=== PATIENT | male | born 1950 | race Caucasian/White ===

== ENCOUNTER 2019-06-26 16:23 | Inpatient (IN) | payer OTHER, SELFPAY ==
[~2019-06-26] VITALS: Ht 149.9 cm; Wt 81.2 kg
[2019-06-26 16:34] VITALS: BP 136/74
[2019-06-26 17:06] LABS: BASOPHILS % (AUTO) 0.5 % (0.0-2.0); EOSINOPHILS % (AUTO) 0.1 % (0.0-4.0); HEMATOCRIT 43.4 % (36-52); HEMOGLOBIN 15.2 g/dL (12.0-18.0); LYMPHOCYTES # (AUTO) 0.8 K/uL (2.0-11.5); LYMPHOCYTES % (AUTO) 13.1 % (20.5-51.1); MEAN CORPUSCULAR HEMOGLOBIN 31 pg (27-31); MEAN CORPUSCULAR HGB CONC 35 g/dL (33-37); MEAN CORPUSCULAR VOLUME 89.4 fL (80-94); MONOCYTES # (AUTO) 0.4 K/uL (0.8-1.0); MONOCYTES % (AUTO) 7.5 % (1.7-9.3); NEUTROPHILS # (AUTO) 4.7 K/uL (1.8-7.7); NEUTROPHILS % (AUTO) 78.8 % (42.2-75.2); PLATELET COUNT (AUTO) 127 K/uL (140-450); RED BLOOD CELL COUNT(AUTO) 4.85 MIL/uL (4.20-6.10); WHITE BLOOD COUNT (AUTO) 5.9 K/uL (4.8-10.8)
[2019-06-26] MEDS ORDERED: ACETAMINOPHEN EXTRA STRENGTH 500 MG TAB PO ONE (17:15)
[2019-06-26] MEDS ORDERED: NACL 0.9% 1,000 ML IV ONE (17:15)
[2019-06-26] MEDS ORDERED: INSULIN REGULAR, HUMAN 100 UNIT/ML VIAL SUBQ ONE (17:15)
[2019-06-26 17:18] LABS: APPEARANCE,URINE CLEAR (CLEAR); BILIRUBIN,URINE 1+ (NEGATIVE); BLOOD, URINE TRACE-I (NEGATIVE); COLOR,URINE YELLOW (YELLOW); LEUKOCYTE ESTERASE ,URINE NEGATIVE (NEGATIVE); NITRITE, URINE NEGATIVE (NEGATIVE); UGLUCOSE 3+ (NEGATIVE)
[2019-06-26 17:19] LABS: ANION GAP 14.6 (8-16); CARBON DIOXIDE 27.3 mmol/L (21-32); POTASSIUM 3.9 mmol/L (3.5-5.1)
[2019-06-26 17:22] LABS: PROTHROMBIN TIME 9.8 secs (10.8-13.4)
[2019-06-26 17:26] LABS: TOTAL BILIRUBIN 0.7 mg/dL (0.0-1.0)
[2019-06-26] MEDS ORDERED: PIPERACILLIN/TAZOBACTAM 3.375 GM in DEXTROSE 5% 50 ML IV ONE (17:50)
[2019-06-26] MEDS ORDERED: NACL 0.9% 1,000 ML IV SCH (18:08)
[2019-06-26] MEDS ORDERED: MORPHINE SULFATE 2 MG/ML SYR IVP PRN (18:10)
[2019-06-26] MEDS ORDERED: HYDROcodone/APAP 5/325 MG 1 TAB TAB PO PRN (18:10)
[2019-06-26] MEDS ORDERED: DOCUSATE SODIUM 100 MG GELCAP PO PRN (18:10)
[2019-06-26] MEDS ORDERED: ALBUTEROL HFA MDI 90 MCG/ACTUATION 8 GM INH PRN (18:10)
[2019-06-26] MEDS ORDERED: DEXTROSE 50% 50 ML SYR IVP PRN (18:20)
[2019-06-26 18:26] LABS: LACTATE DEHYDROGENASE 348 U/L (85-227)
[2019-06-26] MEDS ORDERED: AZITHROMYCIN 500 MG in DEXTROSE 5% 250 ML IV SCH (18:30)
[2019-06-26] MEDS ORDERED: METF500T2 PO (18:43)
[2019-06-26] MEDS ORDERED: PIPERACILLIN/TAZOBACTAM 3.375 GM VIAL IV ONE (18:48)
[2019-06-26 18:56] LABS: BARBITURATE, URINE NEGATIVE ng/ml (NEG <=200); BENZODIAZEPINE, URINE NEGATIVE ng/mL (NEG <=200); CANNABINOID, URINE NEGATIVE ng/mL (NEG <=50); COCAINE, URINE NEGATIVE ng/mL (NEG <=300); OPIATE, URINE NEGATIVE ng/mL (NEG <=2000); PHENCYCLIDINE SCREEN,URINE NEGATIVE ng/mL (NEG <=25)
[2019-06-26 19:03] LABS: WBC,URINE 0-5 /HPF (0-5)
[2019-06-26 19:14] LABS: PHOSPHORUS 2.1 mg/dL (2.5-4.9); THYROID STIMULATING HORMONE 1.07 uIU/mL (0.34-3.74)
[2019-06-26 19:16] VITALS: BP 102/59
[2019-06-26] MEDS: HYDROXYCHLOROQUINE 200 MG TAB PO SCH (21:00)
[2019-06-26] MEDS ORDERED: SODIUM PHOS / POTASSIUM PHOS 1 PKT PDR PO ONE (21:50)
[2019-06-26] MEDS ORDERED: AZITHROMYCIN 500 MG INJ VIAL IV ONE (22:09)
[2019-06-26] MEDS: BLOOD GLUCOSE MONITORING 1 DEV DEV FS SCH (22:20)
[2019-06-26] MEDS: INSULIN LISPRO SLIDING SCALE 100 UNITS/ML VIAL SUBQ PRN (23:28)
[2019-06-27] VITALS (10 sets, daily range): BP systolic 100–135; BP diastolic 46–75
[2019-06-27] MEDS: ACETAMINOPHEN 325 MG TAB PO PRN (03:33)
[2019-06-27] MEDS: MAG SULF 2000 MG/WATER PREMIX 50 ML IV SCH ×2 (04:51→06:37)
[2019-06-27] MEDS: BLOOD GLUCOSE MONITORING 1 DEV DEV FS SCH ×4 (06:33→20:55)
[2019-06-27] MEDS: INSULIN LISPRO SLIDING SCALE 100 UNITS/ML VIAL SUBQ PRN ×4 (06:36→20:56)
[2019-06-27 07:40] LABS: ANION GAP 10.3 (8-16); CARBON DIOXIDE 30.6 mmol/L (21-32); CREATININE 0.9 mg/dL (0.6-1.3); POTASSIUM 3.9 mmol/L (3.5-5.1)
[2019-06-27 08:04] LABS: BASOPHILS % (AUTO) 0.1 % (0.0-2.0); HEMATOCRIT 42.6 % (36-52); HEMOGLOBIN 14.8 g/dL (12.0-18.0); LYMPHOCYTES # (AUTO) 1.3 K/uL (2.0-11.5); MEAN CORPUSCULAR HEMOGLOBIN 31 pg (27-31); MEAN CORPUSCULAR HGB CONC 35 g/dL (33-37); MEAN CORPUSCULAR VOLUME 89.7 fL (80-94); MONOCYTES # (AUTO) 0.3 K/uL (0.8-1.0); MONOCYTES % (AUTO) 5.2 % (1.7-9.3); NEUTROPHILS # (AUTO) 4.5 K/uL (1.8-7.7); NEUTROPHILS % (AUTO) 72.7 % (42.2-75.2); PLATELET COUNT (AUTO) 132 K/uL (140-450); RED BLOOD CELL COUNT(AUTO) 4.75 MIL/uL (4.20-6.10); RED CELL DISTRIBUTION WIDTH 12.9 % (11.6-13.7); WHITE BLOOD COUNT (AUTO) 6.1 K/uL (4.8-10.8)
[2019-06-27] MEDS: ZINC SULF 220 MG CAP PO SCH (08:22)
[2019-06-27] MEDS: HYDROXYCHLOROQUINE 200 MG TAB PO SCH ×2 (08:22→20:04)
[2019-06-27] MEDS: ASCORBIC ACID 500 MG TAB PO SCH (08:22)
[2019-06-27] MEDS: metFORMIN 500 MG TAB PO SCH ×2 (08:23→17:12)
[2019-06-27] MEDS ORDERED: ENOXAPARIN 40 MG/0.4 ML SYR SUBQ SCH (09:00)
[2019-06-27 09:36] LABS: CHOL/HDL RATIO 4.1 (1-4.5)
[2019-06-27] MEDS ORDERED: LOVENOX 1MG/KG Q12H SUBQ SCH (10:50)
[2019-06-27] MEDS: ENOXAPARIN 60 MG/0.6 ML SYR SUBQ SCH ×2 (12:06→20:54)
[2019-06-27] MEDS: AZITHROMYCIN 250 MG TAB PO SCH (18:18)
[2019-06-27] MEDS ORDERED: FUROSEMIDE 20 MG/2 ML VIAL IVP SCH (18:41)
[2019-06-27] MEDS ORDERED: HYDROXYCHLOROQUINE 200 MG TAB ONE (20:00)
[2019-06-28] VITALS (57 sets, daily range): BP systolic 85–167; BP diastolic 52–124
[2019-06-28 06:02] LABS: ALBUMIN 2.4 g/dL (3.4-5.0); ANION GAP 13.3 (8-16); CARBON DIOXIDE 28.8 mmol/L (21-32); CREATININE 0.8 mg/dL (0.6-1.3); MAGNESIUM 1.3 mg/dL (1.8-2.4); PHOSPHORUS 2.3 mg/dL (2.5-4.9); POTASSIUM 3.1 mmol/L (3.5-5.1); TOTAL BILIRUBIN 0.8 mg/dL (0.0-1.0)
[2019-06-28 06:36] LABS: BASOPHILS % (AUTO) 0.1 % (0.0-2.0); HEMATOCRIT 42.8 % (36-52); HEMOGLOBIN 14.9 g/dL (12.0-18.0); LYMPHOCYTES # (AUTO) 1.2 K/uL (2.0-11.5); LYMPHOCYTES % (AUTO) 16.2 % (20.5-51.1); MEAN CORPUSCULAR HEMOGLOBIN 31 pg (27-31); MEAN CORPUSCULAR HGB CONC 35 g/dL (33-37); MEAN CORPUSCULAR VOLUME 88.9 fL (80-94); MONOCYTES # (AUTO) 0.5 K/uL (0.8-1.0); NEUTROPHILS # (AUTO) 5.5 K/uL (1.8-7.7); NEUTROPHILS % (AUTO) 76.7 % (42.2-75.2); PLATELET COUNT (AUTO) 155 K/uL (140-450); RED BLOOD CELL COUNT(AUTO) 4.81 MIL/uL (4.20-6.10); RED CELL DISTRIBUTION WIDTH 13.2 % (11.6-13.7); WHITE BLOOD COUNT (AUTO) 7.2 K/uL (4.8-10.8)
[2019-06-28] MEDS: metFORMIN 500 MG TAB PO SCH ×2 (09:00→17:00)
[2019-06-28] MEDS: HYDROXYCHLOROQUINE 200 MG TAB PO SCH ×2 (09:03→21:00)
[2019-06-28] MEDS: ZINC SULF 220 MG CAP PO SCH (09:04)
[2019-06-28] MEDS: ASCORBIC ACID 500 MG TAB PO SCH (09:04)
[2019-06-28] MEDS: ENOXAPARIN 60 MG/0.6 ML SYR SUBQ SCH ×2 (09:09→21:00)
[2019-06-28] MEDS ORDERED: MIDAZOLAM MDV 100 MG in NACL 0.9% 80 ML IV PRN ×2 (10:40→10:45)
[2019-06-28] MEDS: ONDANSETRON 4 MG/2 ML VIAL IM/IVP PRN ×2 (11:00→21:09)
[2019-06-28] MEDS ORDERED: KCL 20 MEQ/WATER INJ PREMIX 200 ML IV SCH (11:00)
[2019-06-28] MEDS: BLOOD GLUCOSE MONITORING 1 DEV DEV FS SCH ×3 (12:30→21:00)
[2019-06-28] MEDS: PANTOPRAZOLE 40 MG INJ VIAL IVP SCH (12:40)
[2019-06-28] MEDS: INSULIN LISPRO SLIDING SCALE 100 UNITS/ML VIAL SUBQ PRN ×3 (13:40→21:00)
[2019-06-28] MEDS: MAG SULF 2000 MG/WATER PREMIX 100 ML IV SCH ×2 (17:00→21:18)
[2019-06-28] MEDS: POTASSIUM CHLORIDE IV SCH ×2 (17:08→21:21)
[2019-06-28] MEDS: NACL 0.9% IV SCH ×2 (17:08→21:21)
[2019-06-28] MEDS: POTASSIUM PHOSPHATE IV SCH ×2 (17:08→21:21)
[2019-06-28] MEDS: AZITHROMYCIN 250 MG TAB PO SCH (18:00)
[2019-06-28] MEDS: PROPOFOL 1000 MG/100 ML PREMIX 100 ML IV PRN (21:45)
[2019-06-28] MEDS ORDERED: PROPOFOL 1000 MG/100 ML PREMIX 100 ML IV ONE (21:45)
[2019-06-28] MEDS ORDERED: HYDROmorphone PFS 2 MG/ML SYR ONE (23:20)
[2019-06-28] MEDS: HYDROmorphone PFS 2 MG/ML SYR IVP PRN (23:30)
[2019-06-29] VITALS (101 sets, daily range): BP systolic 82–163; BP diastolic 53–129
[2019-06-29] MEDS: PROPOFOL 1000 MG/100 ML PREMIX 100 ML IV PRN ×2 (01:29→07:39)
[2019-06-29] MEDS ORDERED: NOREPINEPHRINE 16 MG in DEXTROSE 5% 250 ML IV PRN (07:00)
[2019-06-29 07:14] LABS: ALBUMIN 2.2 g/dL (3.4-5.0); ANION GAP 11.3 (8-16); CARBON DIOXIDE 31.4 mmol/L (21-32); MAGNESIUM 1.6 mg/dL (1.8-2.4); PHOSPHORUS 2.1 mg/dL (2.5-4.9); POTASSIUM 3.7 mmol/L (3.5-5.1)
[2019-06-29] MEDS: BLOOD GLUCOSE MONITORING 1 DEV DEV FS SCH ×4 (07:30→21:00)
[2019-06-29 08:35] LABS: BASOPHILS % (AUTO) 0.2 % (0.0-2.0); HEMATOCRIT 39.4 % (36-52); HEMOGLOBIN 13.9 g/dL (12.0-18.0); LYMPHOCYTES # (AUTO) 1.1 K/uL (2.0-11.5); LYMPHOCYTES % (AUTO) 11.3 % (20.5-51.1); MEAN CORPUSCULAR HEMOGLOBIN 31 pg (27-31); MEAN CORPUSCULAR HGB CONC 35 g/dL (33-37); MEAN CORPUSCULAR VOLUME 89.2 fL (80-94); MONOCYTES # (AUTO) 0.6 K/uL (0.8-1.0); MONOCYTES % (AUTO) 5.9 % (1.7-9.3); NEUTROPHILS # (AUTO) 8.3 K/uL (1.8-7.7); NEUTROPHILS % (AUTO) 82.6 % (42.2-75.2); PLATELET COUNT (AUTO) 167 K/uL (140-450); RED BLOOD CELL COUNT(AUTO) 4.42 MIL/uL (4.20-6.10); RED CELL DISTRIBUTION WIDTH 13.2 % (11.6-13.7)
[2019-06-29] MEDS: HYDROXYCHLOROQUINE 200 MG TAB PO SCH ×2 (09:00→20:26)
[2019-06-29] MEDS: ZINC SULF 220 MG CAP PO SCH (09:00)
[2019-06-29] MEDS: PANTOPRAZOLE 40 MG INJ VIAL IVP SCH (09:00)
[2019-06-29] MEDS: metFORMIN 500 MG TAB PO SCH ×2 (09:00→17:34)
[2019-06-29] MEDS: ASCORBIC ACID 500 MG TAB PO SCH (09:00)
[2019-06-29] MEDS: ACETAMINOPHEN 325 MG TAB PO PRN (09:01)
[2019-06-29] MEDS ORDERED: SODIUM PHOS / POTASSIUM PHOS 1 PKT PDR PO SCH (09:15)
[2019-06-29] MEDS ORDERED: MAG SULF 2000 MG/WATER PREMIX 50 ML IV SCH ×2 (09:30→15:00)
[2019-06-29] MEDS: NACL 0.9% 1,000 ML IV SCH (10:00)
[2019-06-29] MEDS: ENOXAPARIN 40 MG/0.4 ML SYR SUBQ SCH (11:00)
[2019-06-29] MEDS: MORPHINE SULFATE 100 MG in NACL 0.9% 90 ML IV PRN (13:45)
[2019-06-29] MEDS: MIDAZOLAM MDV 100 MG in NACL 0.9% 80 ML IV PRN (13:45)
[2019-06-29] MEDS: INSULIN LISPRO SLIDING SCALE 100 UNITS/ML VIAL SUBQ PRN ×2 (13:53→21:00)
[2019-06-29] MEDS: HYDROmorphone PFS 2 MG/ML SYR IVP PRN ×2 (14:25→20:26)
[2019-06-29] MEDS ORDERED: CRUSHER, PILL MC ONE (17:10)
[2019-06-29] MEDS: AZITHROMYCIN 250 MG TAB PO SCH (17:34)
[2019-06-30] VITALS (103 sets, daily range): BP systolic 53–129; BP diastolic 48–64
[2019-06-30] MEDS: MIDAZOLAM MDV 100 MG in NACL 0.9% 80 ML IV PRN ×2 (03:53→23:16)
[2019-06-30] MEDS: MORPHINE SULFATE 100 MG in NACL 0.9% 90 ML IV PRN ×2 (05:29→23:11)
[2019-06-30] MEDS: ACETAMINOPHEN 325 MG TAB PO PRN ×3 (07:12→18:29)
[2019-06-30] MEDS: BLOOD GLUCOSE MONITORING 1 DEV DEV FS SCH ×4 (07:30→20:38)
[2019-06-30] MEDS: metFORMIN 500 MG TAB PO SCH (08:00)
[2019-06-30] MEDS: ASCORBIC ACID 500 MG TAB PO SCH (09:28)
[2019-06-30] MEDS: ZINC SULF 220 MG CAP PO SCH (09:28)
[2019-06-30] MEDS: HYDROXYCHLOROQUINE 200 MG TAB PO SCH ×2 (09:28→20:37)
[2019-06-30] MEDS: PANTOPRAZOLE 40 MG INJ VIAL IVP SCH (09:29)
[2019-06-30 10:45] LABS: BASOPHILS % (AUTO) 0.1 % (0.0-2.0); EOSINOPHILS % (AUTO) 0.1 % (0.0-4.0); HEMATOCRIT 40.5 % (36-52); HEMOGLOBIN 13.8 g/dL (12.0-18.0); LYMPHOCYTES # (AUTO) 0.8 K/uL (2.0-11.5); LYMPHOCYTES % (AUTO) 5.9 % (20.5-51.1); MEAN CORPUSCULAR HEMOGLOBIN 31 pg (27-31); MEAN CORPUSCULAR HGB CONC 34 g/dL (33-37); MEAN CORPUSCULAR VOLUME 89.8 fL (80-94); MONOCYTES # (AUTO) 0.5 K/uL (0.8-1.0); NEUTROPHILS # (AUTO) 12.3 K/uL (1.8-7.7); NEUTROPHILS % (AUTO) 89.9 % (42.2-75.2); PLATELET COUNT (AUTO) 206 K/uL (140-450); RED BLOOD CELL COUNT(AUTO) 4.51 MIL/uL (4.20-6.10); RED CELL DISTRIBUTION WIDTH 13.4 % (11.6-13.7); WHITE BLOOD COUNT (AUTO) 13.7 K/uL (4.8-10.8)
[2019-06-30 11:44] LABS: ALBUMIN 1.9 g/dL (3.4-5.0); ANION GAP 15.1 (8-16); ASPARTATE AMINOTRANSFERASE 66 U/L (15-37); CARBON DIOXIDE 28.7 mmol/L (21-32); CHLORIDE 104 mmol/L (98-107); CREATININE 1.6 mg/dL (0.6-1.3); GFR ARICAN-AMERICAN 56 mL/min (>90); GLUCOSE 157 mg/dL (74-106); LACTATE DEHYDROGENASE 621 U/L (85-227); POTASSIUM 3.8 mmol/L (3.5-5.1); SODIUM SERUM 144 mmol/L (136-145); TOTAL BILIRUBIN 3.6 mg/dL (0.0-1.0); UREA NITROGEN, BLOOD 33 mg/dL (7-18)
[2019-06-30] MEDS: NACL 0.9% 1,000 ML IV SCH (11:50)
[2019-06-30] MEDS: ENOXAPARIN 40 MG/0.4 ML SYR SUBQ SCH (11:54)
[2019-06-30] MEDS: NACL 0.45% 1,000 ML IV SCH (12:30)
[2019-06-30] MEDS ORDERED: MAG SULF 2000 MG/WATER PREMIX 50 ML IV ONE (12:35)
[2019-06-30] MEDS ORDERED: SODIUM PHOS / POTASSIUM PHOS 1 PKT PDR PO SCH (12:35)
[2019-06-30] MEDS: AZITHROMYCIN 250 MG TAB PO SCH (18:28)
[2019-07-01] VITALS (103 sets, daily range): BP systolic 92–174; BP diastolic 27–95
[2019-07-01] MEDS: NACL 0.45% 1,000 ML IV SCH (02:48)
[2019-07-01 07:11] LABS: BASOPHILS % (AUTO) 0.2 % (0.0-2.0); HEMATOCRIT 37.9 % (36-52); LYMPHOCYTES # (AUTO) 0.4 K/uL (2.0-11.5); LYMPHOCYTES % (AUTO) 4.8 % (20.5-51.1); MEAN CORPUSCULAR HEMOGLOBIN 31 pg (27-31); MEAN CORPUSCULAR HGB CONC 34 g/dL (33-37); MEAN CORPUSCULAR VOLUME 90.5 fL (80-94); MONOCYTES # (AUTO) 0.3 K/uL (0.8-1.0); MONOCYTES % (AUTO) 3.3 % (1.7-9.3); NEUTROPHILS # (AUTO) 7.2 K/uL (1.8-7.7); NEUTROPHILS % (AUTO) 91.7 % (42.2-75.2); PLATELET COUNT (AUTO) 207 K/uL (140-450); RED BLOOD CELL COUNT(AUTO) 4.19 MIL/uL (4.20-6.10); RED CELL DISTRIBUTION WIDTH 13.7 % (11.6-13.7); WHITE BLOOD COUNT (AUTO) 7.8 K/uL (4.8-10.8)
[2019-07-01] MEDS: ACETAMINOPHEN 325 MG TAB PO PRN ×3 (07:11→19:54)
[2019-07-01] MEDS: BLOOD GLUCOSE MONITORING 1 DEV DEV FS SCH ×4 (07:30→20:16)
[2019-07-01 07:58] LABS: ALBUMIN 1.6 g/dL (3.4-5.0); ANION GAP 17.9 (8-16); ASPARTATE AMINOTRANSFERASE 89 U/L (15-37); CHLORIDE 103 mmol/L (98-107); GFR ARICAN-AMERICAN 43 mL/min (>90); GLUCOSE 125 mg/dL (74-106); LACTATE DEHYDROGENASE 606 U/L (85-227); PHOSPHORUS 3.9 mg/dL (2.5-4.9); POTASSIUM 3.9 mmol/L (3.5-5.1); SODIUM SERUM 143 mmol/L (136-145); TOTAL BILIRUBIN 4.3 mg/dL (0.0-1.0); UREA NITROGEN, BLOOD 51 mg/dL (7-18)
[2019-07-01] MEDS: PANTOPRAZOLE 40 MG INJ VIAL IVP SCH (08:37)
[2019-07-01] MEDS: SODIUM PHOS / POTASSIUM PHOS 1 PKT PDR NG SCH (08:38)
[2019-07-01] MEDS: ZINC SULF 220 MG CAP PO SCH (08:38)
[2019-07-01] MEDS: ASCORBIC ACID 500 MG TAB PO SCH (08:38)
[2019-07-01] MEDS: INSULIN LISPRO SLIDING SCALE 100 UNITS/ML VIAL SUBQ PRN ×4 (09:04→20:14)
[2019-07-01] MEDS ORDERED: DILTIAZEM 25 MG/5 ML VIAL IVP ONE (10:10)
[2019-07-01] MEDS ORDERED: DILTIAZEM 25 MG/5 ML VIAL IVP SCH (10:30)
[2019-07-01] MEDS: ENOXAPARIN 40 MG/0.4 ML SYR SUBQ SCH (10:43)
[2019-07-01] MEDS ORDERED: AMIODARONE 150 MG in DEXTROSE 5% 100 ML IV SCH (11:00)
[2019-07-01] MEDS: AMIODARONE 450 MG in DEXTROSE 5% 250 ML IV SCH ×2 (12:00→21:57)
[2019-07-01] MEDS ORDERED: DILTIAZEM 125 MG in DEXTROSE 5% 100 ML IV SCH (16:00)
[2019-07-01] MEDS: MORPHINE SULFATE 100 MG in NACL 0.9% 90 ML IV PRN (17:36)
[2019-07-01] MEDS: MIDAZOLAM MDV 100 MG in NACL 0.9% 80 ML IV PRN (17:37)
[2019-07-01] MEDS: HYDROmorphone PFS 2 MG/ML SYR IVP PRN (19:54)
[2019-07-02] VITALS (102 sets, daily range): BP systolic 96–139; BP diastolic 48–72
[2019-07-02] MEDS: HYDROmorphone PFS 2 MG/ML SYR IVP PRN (01:48)
[2019-07-02] MEDS: ACETAMINOPHEN 325 MG TAB PO PRN (02:02)
[2019-07-02 06:46] LABS: HEMATOCRIT 37.1 % (36-52); HEMOGLOBIN 12.8 g/dL (12.0-18.0); MEAN CORPUSCULAR HEMOGLOBIN 31 pg (27-31); MEAN CORPUSCULAR HGB CONC 35 g/dL (33-37); MEAN CORPUSCULAR VOLUME 90.1 fL (80-94); PLATELET COUNT (AUTO) 165 K/uL (140-450); RED BLOOD CELL COUNT(AUTO) 4.12 MIL/uL (4.20-6.10); RED CELL DISTRIBUTION WIDTH 13.6 % (11.6-13.7); WHITE BLOOD COUNT (AUTO) 6.5 K/uL (4.8-10.8)
[2019-07-02 07:24] LABS: ALBUMIN 1.5 g/dL (3.4-5.0); ANION GAP 14.9 (8-16); ASPARTATE AMINOTRANSFERASE 128 U/L (15-37); CARBON DIOXIDE 24.8 mmol/L (21-32); CHLORIDE 99 mmol/L (98-107); CREATININE 1.3 mg/dL (0.6-1.3); GFR ARICAN-AMERICAN 71 mL/min (>90); GLUCOSE 204 mg/dL (74-106); LACTATE DEHYDROGENASE 715 U/L (85-227); MAGNESIUM 2.6 mg/dL (1.8-2.4); PHOSPHORUS 1.4 mg/dL (2.5-4.9); POTASSIUM 3.7 mmol/L (3.5-5.1); SODIUM SERUM 135 mmol/L (136-145); TOTAL BILIRUBIN 4.1 mg/dL (0.0-1.0)
[2019-07-02] MEDS: BLOOD GLUCOSE MONITORING 1 DEV DEV FS SCH ×4 (07:30→21:00)
[2019-07-02 07:53] LABS: UREA NITROGEN, BLOOD 68 mg/dL (7-18)
[2019-07-02] MEDS: DEXT 5% /NACL 0.9% 1,000 ML IV SCH (08:40)
[2019-07-02] MEDS ORDERED: HEPARIN PER PHARMACY MC PRN (08:50)
[2019-07-02] MEDS: ASCORBIC ACID 500 MG TAB PO SCH (09:28)
[2019-07-02] MEDS: PANTOPRAZOLE 40 MG INJ VIAL IVP SCH (09:28)
[2019-07-02] MEDS: ZINC SULF 220 MG CAP PO SCH (09:28)
[2019-07-02] MEDS: SODIUM PHOS / POTASSIUM PHOS 1 PKT PDR NG SCH (09:28)
[2019-07-02] MEDS ORDERED: SODIUM PHOSPHATE 15 MMOLE in NACL 0.9% 250 ML IV SCH (09:30)
[2019-07-02 09:31] LABS: BASOPHILS % (MANUAL) 0 % (0-2); EOSINOPHILS % (MANUAL) 0 % (0-4); LYMPHOCYTES % (MANUAL) 9 % (20-46); MONOCYTES % (MANUAL) 6 % (5-12)
[2019-07-02] MEDS: ACETAMINOPHEN 650 MG SUPP RC PRN ×2 (09:35→09:45)
[2019-07-02 09:40] LABS: CHLORIDE,URINE RANDOM 20 mmol/L (110-250); POTASSIUM,URINE RANDOM 31 mmol/L (12-75); URINE SODIUM, RANDOM 4 mmol/l (40-220)
[2019-07-02] MEDS: MIDAZOLAM MDV 100 MG in NACL 0.9% 80 ML IV PRN ×2 (10:07→23:53)
[2019-07-02] MEDS: MORPHINE SULFATE 100 MG in NACL 0.9% 90 ML IV PRN (10:13)
[2019-07-02] MEDS: PROPOFOL 1000 MG/100 ML PREMIX 100 ML IV PRN (10:22)
[2019-07-02 10:56] LABS: PROTHROMBIN TIME 10.6 secs (10.8-13.4)
[2019-07-02] MEDS ORDERED: AMIODARONE 200 MG TAB PO SCH (12:00)
[2019-07-02] MEDS: hePARIN / DEXT 5% PREMIX 250 ML IV SCH ×2 (12:14→20:59)
[2019-07-02] MEDS: INSULIN LISPRO SLIDING SCALE 100 UNITS/ML VIAL SUBQ PRN (22:34)
[2019-07-02] MEDS: AMIODARONE 200 MG TAB GT SCH (22:35)
[2019-07-03] VITALS (102 sets, daily range): BP systolic 90–137; BP diastolic 47–76
[2019-07-03] MEDS: MORPHINE SULFATE 100 MG in NACL 0.9% 90 ML IV PRN ×2 (00:59→14:46)
[2019-07-03 03:58] LABS: HEMATOCRIT 33.7 % (36-52); HEMOGLOBIN 11.7 g/dL (12.0-18.0); MEAN CORPUSCULAR HEMOGLOBIN 32 pg (27-31); MEAN CORPUSCULAR HGB CONC 35 g/dL (33-37); PLATELET COUNT (AUTO) 145 K/uL (140-450); RED CELL DISTRIBUTION WIDTH 13.7 % (11.6-13.7); WHITE BLOOD COUNT (AUTO) 8.2 K/uL (4.8-10.8)
[2019-07-03 04:01] LABS: ALBUMIN 1.3 g/dL (3.4-5.0); ANION GAP 10.7 (8-16); ASPARTATE AMINOTRANSFERASE 96 U/L (15-37); CARBON DIOXIDE 30.9 mmol/L (21-32); CHLORIDE 101 mmol/L (98-107); CREATININE 1.4 mg/dL (0.6-1.3); GFR ARICAN-AMERICAN 65 mL/min (>90); GLUCOSE 271 mg/dL (74-106); LACTATE DEHYDROGENASE 577 U/L (85-227); MAGNESIUM 2.8 mg/dL (1.8-2.4); PHOSPHORUS 1.7 mg/dL (2.5-4.9); POTASSIUM 3.6 mmol/L (3.5-5.1); SODIUM SERUM 139 mmol/L (136-145); TOTAL BILIRUBIN 3.1 mg/dL (0.0-1.0)
[2019-07-03] MEDS: hePARIN / DEXT 5% PREMIX 250 ML IV SCH ×2 (04:45→11:04)
[2019-07-03 05:03] LABS: LYMPHOCYTES % (MANUAL) 8 % (20-46); MONOCYTES % (MANUAL) 3 % (5-12)
[2019-07-03 05:07] LABS: UREA NITROGEN, BLOOD 77 mg/dL (7-18)
[2019-07-03] MEDS: BLOOD GLUCOSE MONITORING 1 DEV DEV FS SCH ×4 (05:55→20:48)
[2019-07-03] MEDS: INSULIN LISPRO SLIDING SCALE 100 UNITS/ML VIAL SUBQ PRN ×4 (05:56→20:49)
[2019-07-03] MEDS: ACETAMINOPHEN 650 MG SUPP RC PRN (05:56)
[2019-07-03] MEDS: DEXT 5% /NACL 0.9% 1,000 ML IV SCH (08:40)
[2019-07-03] MEDS: ZINC SULF 220 MG CAP PO SCH ×2 (09:00→14:43)
[2019-07-03] MEDS: SODIUM PHOS / POTASSIUM PHOS 1 PKT PDR NG SCH ×2 (09:00→14:43)
[2019-07-03] MEDS: ASCORBIC ACID 500 MG TAB PO SCH ×2 (09:00→14:42)
[2019-07-03] MEDS: AMIODARONE 200 MG TAB GT SCH ×3 (09:00→20:19)
[2019-07-03] MEDS: PANTOPRAZOLE 40 MG INJ VIAL IVP SCH (09:29)
[2019-07-03] MEDS ORDERED: POTASSIUM PHOSPHATE 15 MM in NACL 0.9% 250 ML IV SCH (10:00)
[2019-07-03] MEDS: MIDAZOLAM MDV 100 MG in NACL 0.9% 80 ML IV PRN (11:06)
[2019-07-03] MEDS: PROPOFOL 1000 MG/100 ML PREMIX 100 ML IV PRN (16:04)
[2019-07-03] MEDS: HYDROmorphone PFS 2 MG/ML SYR IVP PRN (21:30)
[2019-07-03] MEDS: ACETAMINOPHEN 325 MG TAB PO PRN (21:30)
[2019-07-04] VITALS (41 sets, daily range): BP systolic 50–107; BP diastolic 29–58
[2019-07-04] MEDS: MIDAZOLAM MDV 100 MG in NACL 0.9% 80 ML IV PRN (00:41)
[2019-07-04] MEDS ORDERED: VASOPRESSIN 20 UNITS in NACL 0.9% 250 ML IV SCH (02:30)
[2019-07-04] MEDS ORDERED: EPINEPHrine 1:1000 - 1 MG/ML AMP ONE ×3 (02:30→06:06)
[2019-07-04] MEDS ORDERED: VASOPRESSIN 20 UNITS/ML VIAL ONE ×2 (02:48→03:07)
[2019-07-04] MEDS: EPINEPHrine 1:1000 (1 mg/mL) 1 MG in DEXTROSE 5% 250 ML IV PRN ×4 (02:52→08:27)
[2019-07-04] MEDS ORDERED: PHENYLEPHRINE 10 MG/ML VIAL ONE (03:04)
[2019-07-04] MEDS: PHENYLEPHRINE 40 MG in NACL 0.9% 250 ML IV PRN ×2 (03:15→07:56)
[2019-07-04] MEDS: MORPHINE SULFATE 100 MG in NACL 0.9% 90 ML IV PRN (05:46)
[2019-07-04] MEDS: BLOOD GLUCOSE MONITORING 1 DEV DEV FS SCH (07:30)
[2019-07-04] MEDS: hePARIN / DEXT 5% PREMIX 250 ML IV SCH (08:07)
[2019-07-04] MEDS ORDERED: NACL 0.9% 1,000 ML IV SCH (08:51)
[2019-07-04] MEDS ORDERED: HYDROCORTISONE NA SUCC 100 MG/2 ML VIAL IV SCH ×2 (08:51→12:00)
[2019-07-04] MEDS: PANTOPRAZOLE 40 MG INJ VIAL IVP SCH (09:48)
[2019-07-04] MEDS: AMIODARONE 200 MG TAB GT SCH (09:49)
[2019-07-04] MEDS: ZINC SULF 220 MG CAP PO SCH (09:49)
[2019-07-04] MEDS: ASCORBIC ACID 500 MG TAB PO SCH (09:49)
[2019-07-04] MEDS: SODIUM PHOS / POTASSIUM PHOS 1 PKT PDR NG SCH (09:50)
== END 2019-07-04 21:02 | disposition expired | DRG 870 ==
LOC: EEVIPCON 16:23 → MED 16:23 → MTU 17:55 → MIC 06-27 11:15
PROVIDERS: ADMIT General Practice; ATTEND General Practice
PROC: 5A1955Z Respiratory Ventilation, Greater than 96 Consecutive Hours (ICD-10-PCS; principal; 2019-06-28)
PROC: 0BH17EZ Insertion of Endotracheal Airway into Trachea, Via Natural or Artificial Opening (ICD-10-PCS; 2019-06-28)
PROC: 02HV33Z Insertion of Infusion Device into Superior Vena Cava, Percutaneous Approach (ICD-10-PCS; 2019-06-28)
PROC: B548ZZA Ultrasonography of Superior Vena Cava, Guidance (ICD-10-PCS; 2019-06-28)
PROC: 5A12012 Performance of Cardiac Output, Single, Manual (ICD-10-PCS; 2019-07-04)
DX: A41.89 Other specified sepsis (principal); U07.1 COVID-19; J12.89 Other viral pneumonia; J96.01 Acute respiratory failure with hypoxia; E43 Unspecified severe protein-calorie malnutrition; N17.0 Acute kidney failure with tubular necrosis; E87.1 Hypo-osmolality and hyponatremia; J98.11 Atelectasis; I47.1 Supraventricular tachycardia; D68.59 Other primary thrombophilia; E11.65 Type 2 diabetes mellitus with hyperglycemia; Z68.28 Body mass index [BMI] 28.0-28.9, adult; E83.39 Other disorders of phosphorus metabolism; E87.6 Hypokalemia; I46.9 Cardiac arrest, cause unspecified; E86.0 Dehydration; I48.91 Unspecified atrial fibrillation; E83.42 Hypomagnesemia; E83.41 Hypermagnesemia; Z79.84 Long term (current) use of oral hypoglycemic drugs; D69.6 Thrombocytopenia, unspecified; I12.9 Hypertensive chronic kidney disease with stage 1 through stage 4 chronic kidney disease, or unspecified chronic kidney disease; N18.9 Chronic kidney disease, unspecified; E11.22 Type 2 diabetes mellitus with diabetic chronic kidney disease
CPT/HCPCS: 36415; 36600; 71045; 80048; 80053; 80305; 81001; 82436; 82550; 82553; 82570; 82728; 82803; 82948; 83036; 83605; 83615; 83690; 83735; 83880; 83930; 83935; 84100; 84133; 84300; 84443; 84484; 85025; 85379; 85384; 85610; 85651; 85730; 86140; 87040; 87070; 87081; 87086; 87205; 89220; 92950; 93005; 93970; 94002; 94003; 96361; 96365; 96372; 99291; C1751; C9113; J0171; J0282; J0456; J1170; J1644; J1650; J1720; J1815; J1940; J2250; J2270; J2370; J2405; J2543; J2704; J3475; J3480; J3490; J3535; J7030; J7042; J7060; Q0092